=== PATIENT | male | born 1995 | race Caucasian/White ===

== ENCOUNTER 2018-04-11 16:56 | Emergency (ER) | payer OTHER ==
[2018-04-11 17:03] VITALS: BP 159/93
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
[2018-04-11] MEDS ORDERED: BACITRACIN OINTMENT 1 PACKET TP ONE (17:55)
== END 2018-04-11 18:37 | disposition home or self-care (01) ==
DX: T24.231A Burn of second degree of right lower leg, initial encounter (principal); J45.909 Unspecified asthma, uncomplicated; X08.8XXA Exposure to other specified smoke, fire and flames, initial encounter; Y92.69 Other specified industrial and construction area as the place of occurrence of the external cause; Y99.0 Civilian activity done for income or pay; Y93.89 Activity, other specified